=== PATIENT | female | born 1975 | race Caucasian/White ===

== ENCOUNTER 2020-12-14 13:05 | Outpatient (CLI) | payer OTHER | END 2020-12-14 13:06 | disposition home or self-care (01) | LOC: COV 13:05 | PROVIDERS: ATTEND Specialist | DX: Z01.812 Encounter for preprocedural laboratory examination (principal); Z20.822 Contact with and (suspected) exposure to COVID-19 ==

== ENCOUNTER 2021-03-31 08:00 | Outpatient (CLI) | payer OTHER | END 2021-03-31 23:59 | disposition home or self-care (01) | LOC: LAB.N 08:00 | PROVIDERS: ATTEND Physician Assistant | DX: R05.3 Chronic cough (principal); Z20.822 Contact with and (suspected) exposure to COVID-19 ==

== ENCOUNTER 2023-05-31 16:21 | Emergency (ER) | payer OTHER ==
[2023-05-31 16:36] VITALS: BP 132/88; O2SAT 100
[2023-05-31 16:58] LABS: RAPID STREP SCREEN Negative (Negative)
--- NOTE | 2023-05-31 17:15 | ED Physician Documentation ---
PD HPI HEENT - Stated complaint Stated Complaint: THROAT PX - Chief complaint Chief Complaint: Heent - History obtained from History obtained from: Patient - Additional information Additional information: The patient comes to the emergency department chief complaint of sore throat for about the last week. She has also had rhinorrhea and a little bit of a cough. She has had some chills occasionally. The patient denies any GI symptoms. She mainly wants to make sure she does not have strep. No other complaints at this time. PD PAST MEDICAL HISTORY - Past Medical History Past Medical History: Yes Cardiovascular: None Respiratory: Asthma Neuro: None Endocrine/Autoimmune: None GI: None ELECTRONIC TECH: None : None HEENT: None Psych: Depression, Anxiety Musculoskeletal: None Derm: None - Past Surgical History Past Surgical History: Yes /ELECTRONIC TECH: Tubal ligation, Breast implants HEENT: Tonsil/Adenoidectomy - Present Medications Home Medications: Ambulatory Orders Medication Instructions Recorded Confirmed Albuterol Sulf [Ventolin Hfa 1 - 2 puffs INH Q4HR PRN 05/31/23 05/31/23 Inhaler] buPROPion HCL [Bupropion Xl] 450 mg PO DAILY 05/31/23 05/31/23 - Allergies Allergies/Adverse Reactions: Allergies Allergy/AdvReac Type Severity Reaction Status Date / Time Penicillins Allergy Anaphylaxis Verified 05/31/23 16:29 - Social History Does the pt smoke?: No Smoking Status: Never smoker Does the pt drink ETOH?: Yes Does the pt have substance abuse?: No - Immunizations Immunizations are current?: Yes - POLST Patient has POLST: No PD ED PE NORMAL - Vitals Vital signs reviewed: Yes - General General: Alert and oriented X 3, No acute distress, Well developed/nourished - HEENT HEENT: Atraumatic, PERRL, EOMI, Moist mucous membranes, Pharynx benign - Neck Neck: Supple, no meningeal sign, No adenopathy - Cardiac Cardiac: RRR, No murmur - Respiratory Respiratory: No respiratory distress, Clear bilaterally - Abdomen Abdomen: Soft, Non tender, Non distended - Derm Derm: Normal color, Warm and dry, No rash - Extremities Extremities: No deformity, No edema - Neuro Neuro: Other (Grossly intact) - Psych Psych: Normal mood, Normal affect Results - Vitals Vitals: Vital Signs - 24 hr 05/31/23 16:29 Temperature 37.2 C Heart Rate 76 Respiratory 16 Rate Blood Pressure 132/88 H O2 Saturation 100 Oxygen O2 Source Room air - Labs Labs: Laboratory Tests 05/31/23 16:20 Group A Strep Rapid Negative PD Medical Decision Making - ED course Complexity details: reviewed results, re-evaluated patient, considered jaylon natividad, d/w patient ED course: The patient was worked up with strep test which was negative, and with a respiratory PCR panel, which is pending at this time. Patient was very well- appearing and I discussed with her that her symptoms are almost certainly viral. We have discussed symptomatic management at home as well as the usual indications for return. Departure - Departure Disposition: 01 Home, Self Care Clinical Impression: Upper respiratory infection, viral Condition: Stable Instructions: ED Viral Syndrome Comments: Your strep test is negative. You do have a viral panel pending at this time. This can take a while to come back and so we will let you go home as you most likely have a viral upper respiratory infection of 1 kind or another. You may look for your results on our website at [email or web address]. You can click on the "my [employer]" tab and sign up for the patient portal. We will also call you if you have any significant positive results come back. Your symptoms will be expected to pass on their own in the next week or so. You may use ibuprofen, Tylenol, and cough medicine, as needed. Forms: PCP List
[2023-05-31 18:27] LABS: B. PARAPERTUSSIS- RESP PCR PAN NOT DETECTED; B. PERTUSSIS- RESP PCR PANEL NOT DETECTED; C. PNEUMONIAE- RESP PCR PANEL NOT DETECTED; CORONAVIRUS 229E-RESP PCR NOT DETECTED; CORONAVIRUS HKU1-RESP PCR DETECTED; CORONAVIRUS NL63-RESP PCR NOT DETECTED; CORONAVIRUS OC43-RESP PCR NOT DETECTED; HUMAN METAPNEUMOVIRUS NOT DETECTED; INFLUENZA A- RESP PCR PANEL NOT DETECTED; INFLUENZA B - RESP PCR PANEL NOT DETECTED; M. PNEUMONIAE- RESP PCR PANEL NOT DETECTED; PARAINFLUENZA VIRUS 1 NOT DETECTED; PARAINFLUENZA VIRUS 2 NOT DETECTED; PARAINFLUENZA VIRUS 3 NOT DETECTED; PARAINFLUENZA VIRUS 4 NOT DETECTED; RHINOVIRUS/ENTEROVIRUS NOT DETECTED; RSV- RESP PCR PANEL NOT DETECTED; SARS-CoV-2 -RESP PCR PANEL NOT DETECTED
== END 2023-05-31 17:20 | disposition home or self-care (01) ==
LOC: ED 16:21
DX: J06.9 Acute upper respiratory infection, unspecified (principal)
CPT/HCPCS: 87070; 87430; 87633; 99283

== ENCOUNTER 2023-11-11 15:45 | Outpatient (CLI) | payer OTHER ==
[2023-11-11 23:32] LABS: BACTERIAL VAGINOSIS DNA NEGATIVE (NEGATIVE); CANDIDA GLABRATA DNA NEGATIVE (NEGATIVE); CANDIDA GROUP DNA NEGATIVE (NEGATIVE); CANDIDA KRUSEI DNA NEGATIVE (NEGATIVE); TRICHOMONAS VAGINALIS DNA NEGATIVE (NEGATIVE)
== END 2023-11-11 16:00 | disposition home or self-care (01) ==
LOC: LAB.N 15:45
PROVIDERS: ATTEND Physician Assistant Medical
DX: R30.0 Dysuria (principal); L29.2 Pruritus vulvae
CPT/HCPCS: 81514; 87086